=== PATIENT | female | born 1975 | race Caucasian/White ===

== ENCOUNTER 2017-02-08 09:52 | Emergency (ER) | payer SELFPAY ==
[~2017-02-08] VITALS: Ht 162.6 cm; Wt 106.0 kg
[~2017-02-08 09:52] MED LIST: ALBU18HF INHALATION; ALBU8.5H3 INH; FLUD0.1T10 PO; FLUT16SP17 NASAL; HYDR5TAB PO; HYDR5TAB2 PO; LEVO1TAB26 PO; LORA10CA PO; RTPRO NEB
[2017-02-08 09:55] VITALS: Ht 162.6 cm; Wt 106.0 kg
== END 2017-02-08 10:20 | disposition left against medical advice (07) ==
LOC: FTE 09:52
DX: Z53.21 Procedure and treatment not carried out due to patient leaving prior to being seen by health care provider (principal)

== ENCOUNTER 2018-11-06 23:05 | Emergency (ER) | payer OTHER ==
[~2018-11-06] VITALS: Ht 160 cm; Wt 102.9 kg
[~2018-11-06 23:05] MED LIST changes: -ALBU8.5H3 INH; +ALBU8.5H8 INH; -HYDR5TAB2 PO; +HYDR5TAB7 PO
[2018-11-06 23:36] VITALS: Ht 160 cm; Wt 102.9 kg
--- NOTE | 2018-11-07 01:36 | ERD ---
ER Documentation Chief Complaint Chief Complaint C/O CHILL HPI The patient is a 43-year-old female, presenting to the ER because of chills around 10 PM, denies cough, congestion, neck pain, chest pain, abdominal pain, vomiting 20 sigmoid diarrhea. She does not smoke, drink Past medical history: History of Kenton's disease, asthma, hypothyroidism Past surgical history: None ROS All systems reviewed and are negative except as per history of present illness. Medications Home Meds Active Scripts Sulfamethoxazole/Trimethoprim* (Bactrim Ds* Tablet) 1 Each Tablet, 1 TAB PO BID, #14 TAB Prov:ELIZABETH SIMEON MD 11/07/18 Albuterol Sulfate* (Proair HFA*) 8.5 Gm Hfa.aer.ad, 2 PUFF INH Q4, #1 INHALER Prov:SAÚL ROSE PA-C 08/09/16 Albuterol Sulfate* (Proventil* Neb) 0.083% Neb, 2.5 MG NEB Q4 PRN for SHORTNESS OF BREATH, #30 EA Prov:VITALIY SOTO MD 03/14/16 Reported Medications Loratadine* (Claritin*) 10 Mg Capsule, 10 MG PO DAILY, CAP 03/14/16 Levonorgestrel-Ethinyl Estradiol (Lutera) 1 Tab Tablet, 1 TAB PO DAILY, TAB 03/14/16 Hydrocortisone* (Cortef*) 5 Mg Tab, 10 MG PO QPM, #120 TAB 03/14/16 Hydrocortisone (Hydrocortisone) 5 Mg Tablet, 15 MG PO QAM, TAB 03/14/16 Fluticasone Propionate* (Fluticasone Propionate* Nasal) 50 Mcg/Crawford - 16 Gm Crawford.susp, 1 SPRAY NASAL BID, #1 BOTTLE TO EACH NOSTRIL 03/14/16 Fludrocortisone* (Fludrocortisone*) 0.1 Mg Tablet, 0.1 MG PO DAILY, TAB 03/14/16 Albuterol Sulfate* (Ventolin HFA*) 18 Gm Hfa.aer.ad, 2 PUFF INHALATION Q6H PRN f or WHEEZING AND RESP DISTRESS, #1 INHALER 03/14/16 Allergies Allergies: Coded Allergies: montelukast (Unverified Allergy, Severe, RASHES; DISORIENTED, 11/07/18) PMhx/Soc Hx Respiratory Disorders: Yes (asthma) Hx Alcohol Use: No Hx Substance Use: No Hx Tobacco Use: No Physical Exam Vitals Vital Signs Date Temp Pulse Resp B/P (MAP) Pulse Ox O2 O2 Flow FiO2 Time Delivery Rate 11/07/18 98.7 77 16 107/59 98 Room Air 04:10 (75) 11/07/18 98.0 78 16 109/56 98 Room Air 03:06 (73) 11/06/18 98.7 94 21 160/81 99 23:36 (107) Physical Exam Const: No acute distress. Head: Atraumatic. Eyes: Normal Conjunctiva. ENT: Normal External Ears, Nose and Mouth. Neck: Full range of motion. No meningismus. Resp: Clear to auscultation bilaterally. Cardio: Regular rate and rhythm. Abd: Soft, non distended, normal bowel sounds, non tender. Skin: No petechiae or rashes. Back: No midline or flank tenderness. Ext: No cyanosis, or edema. Neur: Awake and alert. No focal deficit Psych: Normal Mood and Affect. Result Diagram: 11/07/1822511/07/18225 Results 24 hrs Laboratory Tests Test 11/07/18 02:22 11/07/18 02:26 11/07/18 02:55 Bedside Urine pH (LAB) 7.0 Bedside Urine Protein (LAB) Negative Bedside Urine Glucose (UA) Negative Bedside Urine Ketones (LAB) Negative Bedside Urine Blood Negative Bedside Urine Nitrite (LAB) Negative Bedside Urine Leukocyte Esterase 1+ (L White Blood Count 10.2 10^3/ul Red Blood Count 4.87 10^6/ul Hemoglobin 14.1 g/dl Hematocrit 42.1 % Mean Corpuscular Volume 86.4 fl Mean Corpuscular Hemoglobin 29.0 pg Mean Corpuscular 33.5 g/dl Hemoglobin Concent Red Cell Distribution Width 12.6 % Platelet Count 313 10^3/UL Mean Platelet Volume 9.8 fl Immature Granulocytes % 0.500 % Neutrophils % 59.3 % Lymphocytes % 28.0 % Monocytes % 8.5 % Eosinophils % 3.3 % Basophils % 0.4 % Nucleated Red Blood Cells % 0.0 /100WBC Immature Granulocytes # 0.050 10^3/ul Neutrophils # 6.1 10^3/ul Lymphocytes # 2.9 10^3/ul Monocytes # 0.9 10^3/ul Eosinophils # 0.3 10^3/ul Basophils # 0.0 10^3/ul Nucleated Red Blood Cells # 0.0 10^3/ul Sodium Level 139 mmol/L Potassium Level 3.6 mmol/L Chloride Level 105 mmol/L Carbon Dioxide Level 27 mmol/L Anion Gap 7 Blood Urea Nitrogen 16 mg/dl Creatinine 0.62 mg/dl Est Glomerular Filtrat Rate mL/min > 60 mL/min Glucose Level 107 mg/dl Calcium Level 9.4 mg/dl POC Beta HCG, Qualitative NEGATIVE Current Medications Medications Dose Sig/Gentry Start Time Status Last (Trade) Ordered Route PRN Stop Time Admin Dose Reason Admin 1 tab ONCE ONCE 11/07/18 DC 11/07/18 Trimethoprim/ PO 04:00 04:02 11/07/18 04:01 Sulfamethoxaz ole (Bactrim (Ds)) Procedures/MDM [place] [address] Radiology Main Line: [phone] DIAGNOSTIC IMAGING REPORT Patient: JERICHO ARCHIBALD : 1975 Age: 43 Sex: F MR #: [id number] DOS: 11/07/18 0159 Ordering MD: ELIZABETH SIMEON MD Location: E/R Room/Bed: PROCEDURE: Single view chest. CLINICAL INDICATION: Shortness of breath TECHNIQUE: Single view of the chest was obtained COMPARISON: CR CHEST 03/14/2016 FINDINGS: There is no airspace consolidation or focal infiltrate. No pleural effusion or pneumothorax. Cardiac silhouette and mediastinal contours are unremarkable. Pulmonary vasculature appears normal. Regional bones are grossly unremarkable. IMPRESSION: No evidence of active cardiopulmonary disease. RPTAT: [facility] Physician Perez Date Time Electronically viewed and signed by Physician Perez on 11/07/2018 02:50 xB/ CC: ELIZABETH SIMEON MD [phone] MEDICAL MAKING DECISION: The patient is a 43-year-old female, presenting to the ER because of acute cystitis, is stable for outpatient follow-up. She was treated with Bactrim DS in the ER The differential diagnoses considered include but are not limited to cholelithiasis, cholecystitis, choledocholithiasis, cholangitis, pancreatitis, hepatitis, gastritis, peptic ulcer disease, gastric ulcer, appendicitis, cystitis, diverticulitis, partial small bowel obstruction. Departure Diagnosis: Primary Impression: UTI (urinary tract infection) Condition: Good Comments She was discharged with Bactrim DS The patient's blood pressure was elevated (>120/80) but appears stable without evidence of hypertension emergency or urgency. The patient was counseled about the risks of hypertension and urged to pursue outpatient monitoring and therapy within a week with their primary care physician. I discussed the findings with the patient. I advised the patient to follow-up with the primary physician in about 2-3 days, sooner if needed and return if any concern. Disclaimer: Inadvertent spelling and grammatical errors are likely due to EHR/dictation software use and do not reflect on the overall quality of patient care. Also, please note that the electronic time recorded on this note does not necessarily reflect the actual time of the patient encounter. ELIZABETH SIMEON MD Nov 07, 2018 01:36
[2018-11-07] MEDS ORDERED: SULF1TAB31 PO (03:56)
[2018-11-07] MEDS ORDERED: TRIMETHOPRIM/SULFAMETHOX (DS) TAB PO ONE (04:00)
[2018-11-07 04:10] VITALS: BP 107/59; PULSE 77; RESP 16
== END 2018-11-07 04:11 | disposition home or self-care (01) ==
LOC: E/R 23:05
DX: N39.0 Urinary tract infection, site not specified (principal); J45.909 Unspecified asthma, uncomplicated; E03.9 Hypothyroidism, unspecified
CPT/HCPCS: 36415; 71045; 80048; 81003; 81025; 85025; Z7502; Z7610